=== PATIENT | female | born 1945 | race Hispanic/Latino ===

== ENCOUNTER 2019-10-30 05:54 | Day surgery (SDC) | payer MEDICARE ==
[2019-10-27 15:05] VITALS: BMI 29.4
[2019-10-30] MEDS ORDERED: Lidocaine 1% (PF) 30 ML VIAL ONE (06:39)
[2019-10-30] MEDS ORDERED: Heparin (Artline) 1,000 ML ONE (06:39)
[2019-10-30 07:12] LABS: #Eosinphils 0.2 thou/uL (0.0-0.7); #Lymphocytes 1.8 thou/uL (1.20-3.40); #Monocytes 0.4 thou/uL (0.11-0.59); %Basophils 0.5 % (0.0-1.0); %Eosinophils 2.4 % (0.0-10.0); %Lymphocytes 27.5 % (21.0-51.0); %Monocytes 6.9 % (0.0-10.0); %Neutrophils 62.6 % (42.0-75.0); Hemoglobin 12.3 g/dL (12.0-16.0); Mean Corpuscular HGB CONC 33.8 g/dL (32.0-36.0); Mean Corpuscular Hemoglobin 28.5 pg (27.0-31.0); Mean Corpuscular Volume 84.4 fL (78.0-98.0); Mean Platelet Volume 9.8 fL (7.4-10.4); Platelet Count 133 thou/uL (130-400); RBC Distribution Width 13.3 % (11.5-14.5); Red Blood Cell (RBC) Count 4.32 mill/uL (4.20-5.40); White Blood Cell (WBC) Count 6.4 thou/uL (4.8-10.8)
[2019-10-30 08:49] LABS: Albumin 3.7 g/dL (3.4-4.8)
[2019-10-30 08:50] LABS: Chloride 111 mmol/L (98-107); Potassium 4.2 mmol/L (3.5-5.1); Sodium 140 mmol/L (136-145)
[2019-10-30 08:51] LABS: Calcium 8.8 mg/dL (7.8-10.44)
[2019-10-30 08:52] LABS: Globulin 2.9 g/dL (2.4-3.5); Glucose 77 mg/dL (83-110); Protein, Total 6.6 g/dL (6.0-8.3)
[2019-10-30 08:53] LABS: Anion Gap 12 mmol/L (10-20); Bilirubin, Total 0.4 mg/dL (0.2-1.2); Carbon Dioxide 21 mmol/L (23-31)
[2019-10-30 08:54] LABS: Alkaline Phosphatase 62 U/L (40-110)
[2019-10-30 08:55] LABS: Calc. Creatinine Clearance 59 mL/min (70-130); Estimated GFR-MDRD 55
[2019-10-30 08:56] LABS: BUN (Urea Nitrogen) 19 mg/dL (9.8-20.1)
[2019-10-30 08:57] LABS: ALT (SGPT) 11 U/L (8-55); AST (SGOT) 18 U/L (5-34)
[2019-10-30] MEDS ORDERED: Midazolam HCl 2 mg/2 ml Vial ONE (09:32)
[2019-10-30] MEDS ORDERED: Fentanyl 100 MCG/2 ML VIAL ONE (09:32)
[2019-10-30] MEDS ORDERED: hydrALAZINE 20 MG/ML VIAL ONE (10:21)
[2019-10-30] MEDS ORDERED: Sodium Chloride 0.9% 1,000 ML IV SCH (11:25)
[2019-10-30] MEDS ORDERED: Nitroglycerin 0.4 MG TAB (25 Tab Bottle) SL PRN (11:25)
[2019-10-30] MEDS ORDERED: Acetaminophen/Codeine 30-300mg Tablet PO PRN ×2 (11:25)
[2019-10-30] MEDS ORDERED: Acetaminophen/Codeine 30-300mg Tablet ONE (11:30)
[2019-10-30] MEDS ORDERED: Iopamidol 370 76% 100 ML VIAL ONE (15:17)
== END 2019-10-30 15:50 | disposition home or self-care (01) ==
LOC: CCL 05:54
PROVIDERS: ATTEND Internal Medicine Cardiovascular Disease
PROC: 4A023N7 Measurement of Cardiac Sampling and Pressure, Left Heart, Percutaneous Approach (ICD-10-PCS; principal; 2019-10-30)
PROC: B2111ZZ Fluoroscopy of Multiple Coronary Arteries using Low Osmolar Contrast (ICD-10-PCS; 2019-10-30)
DX: I25.10 Atherosclerotic heart disease of native coronary artery without angina pectoris (principal); I35.9 Nonrheumatic aortic valve disorder, unspecified; E11.9 Type 2 diabetes mellitus without complications; E66.9 Obesity, unspecified; K21.9 Gastro-esophageal reflux disease without esophagitis; F32.9 Major depressive disorder, single episode, unspecified; Z79.84 Long term (current) use of oral hypoglycemic drugs; Z79.899 Other long term (current) drug therapy
CPT/HCPCS: 36415; 76942; 80053; 85025; 93460; 93561; 99152; 99153; C1769; J0360; J1644; J2001; J2250; J3010; Q9967

== ENCOUNTER 2021-10-07 00:20 | Emergency (ER) | payer MEDICARE, SELFPAY ==
[2021-10-07 00:52] LABS: #Basophils 0.1 thou/uL (0.0-0.2); #Eosinphils 0.3 thou/uL (0.0-0.7); #Lymphocytes 1.7 thou/uL (1.20-3.40); #Monocytes 0.5 thou/uL (0.11-0.59); #Neutrophils 5.5 thou/uL (1.40-6.50); %Basophils 1.2 % (0.0-1.0); %Eosinophils 3.8 % (0.0-10.0); %Monocytes 6.5 % (0.0-10.0); %Neutrophils 67.6 % (42.0-75.0); Hemoglobin 11.4 g/dL (12.0-16.0); Mean Corpuscular HGB CONC 32.7 g/dL (32.0-36.0); Mean Corpuscular Hemoglobin 29.2 pg (27.0-31.0); Mean Corpuscular Volume 89.2 fL (78.0-98.0); Mean Platelet Volume 7.2 fL (7.4-10.4); Platelet Count 222 thou/uL (130-400); RBC Distribution Width 13.4 % (11.5-14.5); Red Blood Cell (RBC) Count 3.91 mill/uL (4.20-5.40); White Blood Cell (WBC) Count 8.1 thou/uL (4.8-10.8)
[2021-10-07 01:09] LABS: ALT (SGPT) 10 U/L (8-55); AST (SGOT) 16 U/L (5-34); Albumin 4.2 g/dL (3.4-4.8); Alkaline Phosphatase 77 U/L (40-110); Anion Gap 17 mmol/L (10-20); BUN (Urea Nitrogen) 19 mg/dL (9.8-20.1); Bilirubin, Total 0.3 mg/dL (0.2-1.2); Calc. Creatinine Clearance 0 mL/min (70-130); Calcium 9.6 mg/dL (7.8-10.44); Carbon Dioxide 20 mmol/L (23-31); Chloride 108 mmol/L (98-107); Globulin 3.5 g/dL (2.4-3.5); Glucose 158 mg/dL (83-110); Potassium 4.9 mmol/L (3.5-5.1); Protein, Total 7.7 g/dL (5.8-8.1); Sodium 140 mmol/L (136-145)
[2021-10-07] MEDS ORDERED: Sucralfate 1 GM/10 ML UDCUP ONE (01:13)
[2021-10-07] MEDS ORDERED: Ondansetron PF 4 MG/2 ML Vial ONE (01:13)
[2021-10-07 01:20] LABS: Bacteria/HPF None Seen HPF (None Seen); Bilirubin Negative (Negative); Blood, Urine Negative (Negative); Clarity Clear (Clear); Glucose, Urine (Dipstick) Normal (Negative); Ketone, Urine Negative (Negative); Leukocyte 250 Leu/uL (Negative); Nitrite Negative (Negative); Protein, Urine (Dipstick) Negative (Neg-Trace); RBC/HPF None Seen HPF (0-3); Specific Gravity, Urine 1.014 (1.002-1.036); Squamous Epithelial 0-3 HPF (0-3); Urobilinogen Normal mg/dL (Less than 2); WBC/HPF 0-3 HPF (0-3)
[2021-10-07] MEDS ORDERED: Iopamidol-370 76% 500 ML 1 ML ONE (11:57)
== END 2021-10-07 02:45 | disposition home or self-care (01) ==
LOC: ERS 00:20
DX: R10.13 Epigastric pain (principal); B37.0 Candidal stomatitis; E11.9 Type 2 diabetes mellitus without complications; Z79.84 Long term (current) use of oral hypoglycemic drugs; Z79.899 Other long term (current) drug therapy
CPT/HCPCS: 36415; 74177; 80053; 81003; 81015; 83690; 85025; 93005; 96374; J2405; Q9967

== ENCOUNTER 2021-10-16 15:50 | Outpatient (CLI) | payer MEDICARE | END 2021-10-16 15:51 | disposition home or self-care (01) | LOC: BICMAMMO 15:50 | PROVIDERS: ATTEND Family Medicine | DX: Z12.31 Encounter for screening mammogram for malignant neoplasm of breast (principal); Z91.89 Other specified personal risk factors, not elsewhere classified | CPT/HCPCS: 77063; 77067 ==

== ENCOUNTER 2022-05-19 13:46 | Outpatient (CLI) | payer MEDICARE | END 2022-05-19 13:47 | disposition home or self-care (01) | LOC: BICULT 13:46 | PROVIDERS: ATTEND Internal Medicine Nephrology | DX: N18.30 Chronic kidney disease, stage 3 unspecified (principal) | CPT/HCPCS: 76770 ==

== ENCOUNTER 2025-05-17 15:24 | Outpatient (CLI) | payer OTHER ==
[2025-05-17 16:05] LABS: Estimated GFR - POC 39.0
== END 2025-05-17 15:25 | disposition home or self-care (01) ==
LOC: CT 15:24
PROVIDERS: ATTEND Family Medicine
DX: R10.13 Epigastric pain (principal); N28.1 Cyst of kidney, acquired; R14.0 Abdominal distension (gaseous)
CPT/HCPCS: 36415; 74177; 82565